=== PATIENT | female | born 1985 | race African-American/Black ===

== ENCOUNTER 2017-10-31 10:40 | Observation (INO) | payer BC, OTHER ==
--- NOTE | 2017-10-31 11:28 | PDOC ---
History of Present Illness - General History Source: Patient Exam Limitations: No Limitations - History of Present Illness Initial Comments: 10/31/17 12:06 The patient is a 32 year old female with significant PMH who presents to the emergency department after being sent by Dr. Davis Gomez for evaluation of low H&H. The patient reports having bloodwork done on and being prescribed Iron as the patients reports her last period was heavier than usual. She reports receiving being told her H&H was low yesterday by Dr. Gomez and to present to the ED for evaluation of a possible transfusion. The patient also notes that all of her fingers feel numb daily before she goes to sleep, which has been occurring for the past year. The patient denies chest pain, shortness of breath, headache and dizziness. Denies fever, chills, nausea, vomit, diarrhea and constipation. Denies dysuria, frequency, urgency and hematuria. LMP: 10/08/2017 Allergies: NKA Past surgical history: None reported. Social history: Current everyday smoker. No reported alcohol or drug use. PCP: Dr. Davis Gomez REGIONAL DIRECTOR OF ADMISSIONS: Dr. Sullivan <Robert Diaz - Last Filed: 10/31/17 13:02> <Floridalma Alvarenga - Last Filed: 11/03/17 08:08> - General Chief Complaint: Revisit, Lab Variance Stated Complaint: TRANSFUSION (PCP SENT) Time Seen by Provider: 10/31/17 11:14 Past History <Robert Diaz - Last Filed: 10/31/17 13:02> - Past Medical History COPD: No DVT: No - Immunization History Immunization Up to Date: Yes - Suicide/Smoking/Psychosocial Hx Smoking History: Never smoked Number of Cigarettes Smoked Daily: 2 Information on smoking cessation initiated: No Hx Alcohol Use: No Drug/Substance Use Hx: No Substance Use Type: None <Floridalma Alvarenga - Last Filed: 11/03/17 08:08> - Past Medical History Allergies/Adverse Reactions: Allergies Allergy/AdvReac Type Severity Reaction Status Date / Time No Known Allergies Allergy Verified 10/31/17 10:45 Home Medications: Ambulatory Orders NK [No Known Home Medication] 10/31/17 Review of Systems - Review of Systems Able to Perform ROS?: Yes Comments:: 10/31/17 12:05 GENERAL/CONSTITUTIONAL: No fever or chills. No weakness. HEAD, EYES, EARS, NOSE AND THROAT: No change in vision. No ear pain or discharge. No sore throat. CARDIOVASCULAR: No chest pain or shortness of breath. RESPIRATORY: No cough, wheezing, or hemoptysis. GASTROINTESTINAL: No nausea, vomiting, diarrhea or constipation. GENITOURINARY: No dysuria, frequency, or change in urination. MUSCULOSKELETAL: No joint or muscle swelling or pain. No neck or back pain. SKIN: No rash NEUROLOGIC: (+) Finger numbness at night daily. No headache, vertigo, loss of consciousness, or change in strength/sensation. ENDOCRINE: No increased thirst. No abnormal weight change. HEMATOLOGIC/LYMPHATIC: No anemia, easy bleeding, or history of blood clots. ALLERGIC/IMMUNOLOGIC: No hives or skin allergy. <Robert Diaz - Last Filed: 10/31/17 13:02> *Physical Exam - Vital Signs Last Vital Signs Temp Pulse Resp BP Pulse Ox 98.4 F 75 17 137/77 100 10/31/17 10:45 10/31/17 10:45 10/31/17 10:45 10/31/17 10:45 10/31/17 10:45 <Robert Diaz - Last Filed: 10/31/17 13:02> - Vital Signs Last Vital Signs Temp Pulse Resp BP Pulse Ox 98.4 F 75 17 137/77 100 10/31/17 10:45 10/31/17 10:45 10/31/17 10:45 10/31/17 10:45 10/31/17 10:45 - Physical Exam Comments: GENERAL: Awake, alert, and fully oriented, in no acute distress HEAD: No signs of trauma EYES: PERRLA, EOMI, sclera anicteric, conjunctiva pale B/L. ENT: Auricles normal inspection, hearing grossly normal, nares patent, oropharynx clear without exudates. Moist mucosa NECK: Normal ROM, supple, no lymphadenopathy, JVD, or masses LUNGS: Breath sounds equal, clear to auscultation bilaterally. No wheezes, and no crackles HEART: Regular rate and rhythm, normal S1 and S2, no murmurs, rubs or gallops ABDOMEN: Soft, nontender, normoactive bowel sounds. No guarding, no rebound. No masses EXTREMITIES: Normal range of motion, no edema. No clubbing or cyanosis. No cords, erythema, or tenderness NEUROLOGICAL: Cranial nerves II through XII grossly intact. Normal speech, normal gait SKIN: Warm, Dry, normal turgor, no rashes or lesions noted. <Floridalma Alvarenga - Last Filed: 11/03/17 08:08> ED Treatment Course - LABORATORY CBC & Chemistry Diagram: 10/31/17 11:12 10/31/17 11:12 - ADDITIONAL ORDERS Additional order review: Laboratory Results 10/31/17 10/31/17 10/31/17 11:25 11:21 11:12 Sodium 140 Potassium 4.1 Chloride 106 Carbon Dioxide 25 Anion Gap 9 BUN 12 Creatinine 0.7 Creat Clearance w eGFR > 60 Random Glucose 98 Calcium 9.2 Total Bilirubin 0.3 AST 12 L ALT 21 Alkaline Phosphatase 52 Total Protein 8.0 Albumin 3.7 Antibody Screen Cancelled Crossmatch See Detail 10/31/17 11:12 RBC 4.01 MCV 60.9 L MCHC 29.7 L RDW 18.1 H MPV 7.1 L Neutrophils % 53.3 Lymphocytes % 33.0 Monocytes % 8.6 Eosinophils % 4.1 Basophils % 1.0 - Consult/PCP Time Called: 13:00 Case discussed with personal care physician: Davis Gomez <Robert Diaz - Last Filed: 10/31/17 13:02> - LABORATORY CBC & Chemistry Diagram: 11/01/17 07:00 11/01/17 08:15 <Floridalma Alvarenga - Last Filed: 11/03/17 08:08> Medical Decision Making - Medical Decision Making Case d/w Dr. Gomez, will place on obs for symptomatic anemia, transfusion pending. <Floridalma Alvarenga - Last Filed: 11/03/17 08:08> *DC/Admit/Observation/Transfer - Attestations Scribe Attestion: 10/31/17 12:06 Documentation prepared by Robert Diaz, acting as medical office assistant instructor for Floridalma Alvarenga MD. <Robert Diaz - Last Filed: 10/31/17 13:02> - Discharge Dispostion Admit: Yes <Floridalma Alvarenga - Last Filed: 02/03/18 08:08> Diagnosis at time of Disposition: Symptomatic anemia - Discharge Dispostion Disposition: HOME Condition at time of disposition: Good
[2017-10-31 11:37] LABS: EOS % 4.1 % (0-4.5); HEMATOCRIT 24.4 % (32.4-45.2); HEMOGLOBIN 7.3 GM/dL (10.7-15.3); MCHC 29.7 g/dl (32.0-36.0); MEAN CELL VOLUME 60.9 fl (80-96); MEAN PLT VOLUME 7.1 fl (7.5-11.1); MONO % 8.6 % (3.8-10.2); NEUT % 53.3 % (42.8-82.8); PLATELET COUNT 543 K/MM3 (134-434); RBC 4.01 M/mm3 (3.60-5.2); RDW 18.1 % (11.6-15.6); WHITE BLOOD COUNT 9.1 K/mm3 (4.0-10.0)
[2017-10-31 11:38] LABS: MCH 18.1 pg (25.7-33.7)
[2017-10-31 11:39] LABS: ADD RBC MORPHOLOGY YES
[2017-10-31 11:59] LABS: ALBUMIN 3.7 g/dl (3.4-5.0); ALK PHOS 52 U/L (45-117); ANION GAP 9 (8-16); BILIRUBIN,TOTAL 0.3 mg/dL (0.2-1.0); BLOOD UREA NITROGEN 12 mg/dL (7-18); CALCIUM 9.2 mg/dL (8.5-10.1); CHLORIDE 106 mmol/L (98-107); CO2 25 mmol/L (21-32); CREATININE 0.7 mg/dL (0.55-1.02); GLUCOSE,RANDOM 98 mg/dL (74-106); POTASSIUM 4.1 mmol/L (3.5-5.1); SGOT/AST 12 U/L (15-37); SGPT/ALT 21 U/L (12-78); SODIUM 140 mmol/L (136-145)
[2017-10-31 12:05] LABS: ANISOCYTOSIS 1+; OVALOCYTE 1+; PLATELET ESTIMATE INCREASED; TARGET CELLS 2+; TEAR DROP CELLS 1+
[2017-10-31 12:22] LABS: LDH 302 U/L (84-246)
[2017-10-31] MEDS ORDERED: SODIUM CHLORIDE 1,000 ML IV STA (12:44)
[2017-10-31 15:25] VITALS: BMI 39.8
[2017-10-31] MEDS: SODIUM CHLORIDE 1,000 ML IV SCH (19:00)
[2017-11-01] MEDS ORDERED: ACETAMINOPHEN 500 MG TABLET (FP) PO PRN (00:04)
[2017-11-01] MEDS: SODIUM CHLORIDE 1,000 ML IV SCH (03:22)
[2017-11-01 06:10] LABS: SERUM IRON SATURATION 3 % (15-55); TOTAL IRON BINDING CAPACITY 537 ug/dL (250-450); UIBC 520 ug/dL (131-425)
[2017-11-01 06:10] LABS: TRANSFERRIN 433 mg/dL (200-370)
[2017-11-01 07:38] LABS: EOS % 3.9 % (0-4.5); HEMATOCRIT 29.7 % (32.4-45.2); HEMOGLOBIN 9.3 GM/dL (10.7-15.3); LYMPH % 31.7 % (8-40); MCH 20.9 pg (25.7-33.7); MCHC 31.2 g/dl (32.0-36.0); MEAN CELL VOLUME 66.9 fl (80-96); MEAN PLT VOLUME 7.3 fl (7.5-11.1); MONO % 7.5 % (3.8-10.2); NEUT % 55.9 % (42.8-82.8); PLATELET COUNT 456 K/MM3 (134-434); RBC 4.44 M/mm3 (3.60-5.2); RDW 25.4 % (11.6-15.6)
[2017-11-01 08:39] LABS: CHLORIDE 108 mmol/L (98-107); POTASSIUM 4.3 mmol/L (3.5-5.1); SODIUM 139 mmol/L (136-145)
[2017-11-01 08:46] LABS: ANION GAP 9 (8-16); BLOOD UREA NITROGEN 13 mg/dL (7-18); CALCIUM 8.3 mg/dL (8.5-10.1); CO2 22 mmol/L (21-32); CREATININE 0.8 mg/dL (0.55-1.02); GLUCOSE,RANDOM 106 mg/dL (74-106)
--- NOTE | 2017-11-01 10:47 | HP ---
Admitting History and Physical - Admission Chief Complaint: no complaints History Source: Patient Limitations to Obtaining History: No Limitations - Past Medical History ...LMP: 10/15/17 - Smoking History Smoking history: Former smoker Have you smoked in the past 12 months: Yes Aproximately how many cigarettes per day: 2 - Alcohol/Substance Use Hx Alcohol Use: No Home Medications - Allergies Allergies/Adverse Reactions: Allergies Allergy/AdvReac Type Severity Reaction Status Date / Time No Known Allergies Allergy Verified 10/31/17 10:45 - Home Medications Home Medications: Ambulatory Orders NK [No Known Home Medication] 10/31/17 Family Disease History - Family Disease History Family History: Unremarkable Review of Systems - Review of Systems Genitourinary: reports: Other (fibroid) Physical Examination Vital Signs: Vital Signs Temperature 98.5 F 11/01/17 03:50 Pulse Rate 76 11/01/17 03:50 Respiratory Rate 18 11/01/17 03:50 Blood Pressure 120/61 11/01/17 03:50 O2 Sat by Pulse Oximetry (%) 100 11/01/17 01:28 Constitutional: Yes: Well Nourished Eyes: Yes: WNL HENT: Yes: WNL Neck: Yes: WNL Cardiovascular: Yes: WNL Respiratory: Yes: WNL Gastrointestinal: Yes: WNL Peripheral Pulses WNL: Yes Integumentary: Yes: WNL Neurological: Yes: WNL, Unresponsive Psychiatric: Yes: WNL Labs: CBC, BMP 11/01/17 07:00 11/01/17 08:15 Assessment/Plan d/c today f/u ultrasound x 1 wk for ovaryfeos3 tid
--- NOTE | 2017-11-01 10:48 | DS ---
Physical Examination Vital Signs: Vital Signs Temperature 98.5 F 11/01/17 03:50 Pulse Rate 76 11/01/17 03:50 Respiratory Rate 18 11/01/17 03:50 Blood Pressure 120/61 11/01/17 03:50 O2 Sat by Pulse Oximetry (%) 100 11/01/17 01:28 Constitutional: Yes: Well Nourished Eyes: Yes: WNL HENT: Yes: WNL Neck: Yes: WNL Cardiovascular: Yes: WNL Respiratory: Yes: WNL Gastrointestinal: Yes: WNL ...Rectal Exam: Yes: WNL Renal/: Yes: WNL Breast(s): Yes: WNL Musculoskeletal: Yes: WNL Extremities: Yes: WNL Edema: Yes Edema: LUE: 3+, RUE: 3+, LLE: 3+, RLE: 3+ Peripheral Pulses: Left Radial: 2+, Right Radial: 2+, Left Doralis Pedis: 2+, Right Dorsalis Pedis: 2+, Left Femoral: 2+ Neurological: Yes: WNL ...Motor Strength: WNL Psychiatric: Yes: WNL Labs: CBC, BMP 11/01/17 07:00 11/01/17 08:15 Discharge Summary Reason For Visit: SECONDARY ANEMIA Current Active Problems Symptomatic anemia (Acute) Condition: Good - Instructions Referrals: Davis Gomez MD [Primary Care Provider] - Disposition: HOME - Home Medications Comprehensive Discharge Medication List: Ambulatory Orders NK [No Known Home Medication] 10/31/17
[2017-11-01 11:22] VITALS: BP 130/80; PULSE 90; TEMP 98.6
== END 2017-11-01 11:46 | disposition home or self-care (01) ==
LOC: JER 10:40 → JERBED 13:13 → J7W 14:20
PROVIDERS: ADMIT Family Medicine; ATTEND Family Medicine
PROC: 30233N1 Transfusion of Nonautologous Red Blood Cells into Peripheral Vein, Percutaneous Approach (ICD-10-PCS; principal; 2017-10-31)
PROC: 3E0337Z Introduction of Electrolytic and Water Balance Substance into Peripheral Vein, Percutaneous Approach (ICD-10-PCS; 2017-10-31)
DX: D64.89 Other specified anemias (principal); Z87.891 Personal history of nicotine dependence
CPT/HCPCS: 36415; 36430; 76856-TC; 80048; 80053; 82728; 83010; 83540; 83550; 83615; 84466; 85025; 85044; 86850; 86900; 86901; 86922; 99284-25; G0378; P9038; P9058

== ENCOUNTER 2018-05-05 09:22 | Observation (INO) | payer BC, OTHER ==
--- NOTE | 2018-05-05 10:56 | PDOC ---
History of Present Illness <Lesa Funes - Last Filed: 05/05/18 11:28> - General History Source: Patient Exam Limitations: No Limitations - History of Present Illness Initial Comments: CHIEF COMPLAINT: 33 y/o afebrile female sent in by Dr. Davis Gomez for a blood transfusion. HISTORY OF PRESENT ILLNESS: The patient states she has heavy periods and has had to have a blood transfusion in the past because of them. They have never found any other reason for her low blood counts. She states she had blood work done on and Dr. Gomez called and told her to come in. Her hemoglobin was 6.5. She states her only symptom is fatigue. She denies f/c, DODGE, dizziness , n/v/d, CP, SOB, back pain, abd pain, hematuria, dysuria, hematochezia, melena. PCP is Dr. Davis Gomez Vital signs on arrival are within normal limits. REVIEW OF SYSTEMS: GENERAL/CONSTITUTIONAL: No fever/chills. No weakness. No weight change. + fatigue HEAD, EYES, EARS, NOSE AND THROAT: No change in vision. No ear pain or discharge. No sore throat. CARDIOVASCULAR: No chest pain or shortness of breath. RESPIRATORY: No cough, wheezing, or hemoptysis. GASTROINTESTINAL: No abd pain, nausea, vomiting, diarrhea, constipation, melena , hematochezia. GENITOURINARY: No dysuria, frequency, or change in urination. MUSCULOSKELETAL: No joint or muscle swelling or pain. No neck or back pain. SKIN: No rash or easy bruising. NEUROLOGIC: No headache, vertigo, loss of consciousness, or loss of sensation. PHYSICAL EXAM: GENERAL: The patient is awake, alert, and fully oriented, in no acute distress. HEAD: Normal with no signs of trauma. ENT: Pupils equal, round and reactive to light, extraocular movements intact, sclera anicteric, conjunctiva clear. Neck supple. LUNGS: Clear to auscultation bilaterally. Normal excursion. No respiratory distress or use of accessory muscles. CV: RRR, S1/S2, no MRG. Cap refill < 2 sec. ABDOMEN: Soft, non-distended, non-tender even to deep palpation, no hepatomegaly or splenomegaly, no masses. EXTREMITIES: Normal range of motion, no edema. NEUROLOGICAL: Normal speech, normal gait. CN II-XII grossly intact. SKIN: Warm, dry, normal turgor, no rashes or lesions noted. <Karma Hwang - Last Filed: 05/05/18 11:59> - General Chief Complaint: Blood Transfusion Stated Complaint: BLOOD TRANSFUSION Time Seen by Provider: 05/05/18 10:35 Past History <Lesa Funes - Last Filed: 05/05/18 11:28> - Past Medical History Anemia: Yes (blood transfusion 2 months ago) COPD: No DVT: No Other medical history: heavy menstruation lasts 27 days - Immunization History Immunization Up to Date: Yes - Suicide/Smoking/Psychosocial Hx Smoking History: Never smoked Have you smoked in the past 12 months: Yes Number of Cigarettes Smoked Daily: 2 Hx Alcohol Use: No Drug/Substance Use Hx: No Substance Use Type: None <Karma Hwang - Last Filed: 05/05/18 11:59> - Past Medical History Allergies/Adverse Reactions: Allergies Allergy/AdvReac Type Severity Reaction Status Date / Time No Known Allergies Allergy Verified 05/05/18 09:43 Home Medications: Ambulatory Orders NK [No Known Home Medication] 10/31/17 *Physical Exam - Vital Signs Last Vital Signs Temp Pulse Resp BP Pulse Ox 98.7 F 87 18 126/79 99 05/05/18 09:40 05/05/18 09:40 05/05/18 09:40 05/05/18 09:40 05/05/18 09:40 <Lesa Funes - Last Filed: 05/05/18 11:28> - Vital Signs Last Vital Signs Temp Pulse Resp BP Pulse Ox 98.7 F 87 18 126/79 99 05/05/18 09:40 05/05/18 09:40 05/05/18 09:40 05/05/18 09:40 05/05/18 09:40 <Karma Hwang - Last Filed: 05/05/18 11:59> ED Treatment Course - LABORATORY CBC & Chemistry Diagram: 05/05/18 10:52 05/05/18 10:52 - ADDITIONAL ORDERS Additional order review: Laboratory Results 05/05/18 05/05/18 10:52 10:52 PT with INR 12.80 INR 1.13 H Crossmatch See Detail 05/05/18 10:52 RBC 3.75 MCV 57.9 L MCHC 29.3 L RDW 20.5 H MPV 6.9 L Neutrophils % 59.1 Lymphocytes % 27.1 Monocytes % 9.4 Eosinophils % 3.0 Basophils % 1.4 <Lesa Funes - Last Filed: 05/05/18 11:28> - LABORATORY CBC & Chemistry Diagram: 05/05/18 10:52 05/05/18 10:52 <Karma Hwang - Last Filed: 05/05/18 11:59> Medical Decision Making - Medical Decision Making 05/05/18 11:28 Dr. Davis Gomez was paged and notified via phone service. <Lesa Funes - Last Filed: 05/05/18 11:28> - Medical Decision Making A/P: 33 y/o afebrile female here for blood transfusion. Plan is as follows: 1. Labs 2. UA Patient with hemoglobin of 6.3. Ordered PRBCs x 2. Spoke with Dr. Davis Gomez who accepts admission. Patient is aware of the plan. <Karma Hwang - Last Filed: 05/05/18 11:59> *DC/Admit/Observation/Transfer <Lesa Funes - Last Filed: 05/05/18 11:28> - Discharge Dispostion Decision to Admit order: Yes <Karma Hwang - Last Filed: 05/05/18 11:59> Diagnosis at time of Disposition: Anemia - Discharge Dispostion Condition at time of disposition: Stable - Referrals Referrals: Davis Gomez MD [Primary Care Provider] - - Patient Instructions - Post Discharge Activity
[2018-05-05 11:00] LABS: BASO % 1.4 % (0-2.0); HEMATOCRIT 21.7 % (32.4-45.2); LYMPH % 27.1 % (8-40); MCHC 29.3 g/dl (32.0-36.0); MEAN CELL VOLUME 57.9 fl (80-96); MEAN PLT VOLUME 6.9 fl (7.5-11.1); MONO % 9.4 % (3.8-10.2); NEUT % 59.1 % (42.8-82.8); PLATELET COUNT 523 K/MM3 (134-434); RBC 3.75 M/mm3 (3.60-5.2); RDW 20.5 % (11.6-15.6); WHITE BLOOD COUNT 8.2 K/mm3 (4.0-10.0)
[2018-05-05 11:14] LABS: MCH 16.9 pg (25.7-33.7)
[2018-05-05 11:17] LABS: HEMOGLOBIN 6.3 GM/dL (10.7-15.3)
[2018-05-05 11:20] LABS: INR 1.13 (0.83-1.09); PROTHROMBIN TIME (PATIENT) 12.8 SEC (9.7-13.0)
[2018-05-05 11:31] LABS: ALBUMIN 3.2 g/dl (3.4-5.0); ANION GAP 9 (8-16); BILIRUBIN,TOTAL 0.3 mg/dL (0.2-1.0); BLOOD UREA NITROGEN 15 mg/dL (7-18); CALCIUM 8.7 mg/dL (8.5-10.1); CHLORIDE 107 mmol/L (98-107); CO2 25 mmol/L (21-32); CREATININE 0.9 mg/dL (0.55-1.02); GLUCOSE,RANDOM 82 mg/dL (74-106); POTASSIUM 3.6 mmol/L (3.5-5.1); SGOT/AST 14 U/L (15-37); SGPT/ALT 20 U/L (12-78); SODIUM 141 mmol/L (136-145); TOT PROT 7.6 g/dl (6.4-8.2)
[2018-05-05 11:33] LABS: ALK PHOS 39 U/L (45-117)
[2018-05-05 13:00] LABS: ANISOCYTOSIS 2+; PLATELET ESTIMATE INCREASED
[2018-05-05 15:49] LABS: HCG,QUALITATIVE URINE Negative
[2018-05-05 15:53] LABS: URINE APPEARANCE SLCLOUDY; URINE BILIRUBIN NEGATIVE (<2.0 mg/dL); URINE COLOR YELLOW; URINE GLUCOSE (UA) NEGATIVE (NEGATIVE); URINE KETONE NEGATIVE (NEGATIVE); URINE LEUK ESTERASE NEGATIVE (NEGATIVE); URINE NITRITE NEGATIVE (NEGATIVE); URINE UROBILINOGEN NEGATIVE mg/dL (0.2-1.0)
[2018-05-05 15:54] LABS: URINE PROTEIN 1+ (NEGATIVE)
[2018-05-05 15:58] LABS: EPI CELLS RARE /HPF (FEW); URINE MUCUS MANY
[2018-05-05] MEDS: ACETAMINOPHEN 325 MG TABLET (FP) PO PRN (21:19)
[2018-05-06 00:06] VITALS: BMI 41.3
[2018-05-06] MEDS ORDERED: PNEUMOC 13-VAL CONJ-DIP CRM/PF 0.5 ML DISP.SYRIN IM ONE (04:11)
[2018-05-06 07:25] LABS: BASO % 0.7 % (0-2.0); HEMOGLOBIN 8.7 GM/dL (10.7-15.3); LYMPH % 27.2 % (8-40); MCH 21.4 pg (25.7-33.7); MCHC 32.3 g/dl (32.0-36.0); MEAN CELL VOLUME 66.4 fl (80-96); MEAN PLT VOLUME 8.3 fl (7.5-11.1); MONO % 7.5 % (3.8-10.2); NEUT % 60.6 % (42.8-82.8); PLATELET COUNT 413 K/MM3 (134-434); RBC 4.06 M/mm3 (3.60-5.2); RDW 31.3 % (11.6-15.6); WHITE BLOOD COUNT 9.6 K/mm3 (4.0-10.0)
[2018-05-06 08:18] LABS: ANION GAP 9 (8-16); BLOOD UREA NITROGEN 14 mg/dL (7-18); CALCIUM 8.3 mg/dL (8.5-10.1); CHLORIDE 110 mmol/L (98-107); CO2 25 mmol/L (21-32); CREATININE 0.8 mg/dL (0.55-1.02); GLUCOSE,RANDOM 91 mg/dL (74-106); POTASSIUM 3.7 mmol/L (3.5-5.1); SODIUM 144 mmol/L (136-145)
[2018-05-06] MEDS ORDERED: PNEUMOCOCCAL 23 VACCINE 0.5 ML VIAL IM ONE (10:00)
--- NOTE | 2018-05-06 10:11 | HP ---
Admitting History and Physical - Admission History of Present Illness: severe anemia s/p 3 units prblcvss hemo onco to see pt chk cbc in am History Source: Patient Limitations to Obtaining History: No Limitations - Past Medical History ...LMP: 05/01/18 - Smoking History Smoking history: Never smoked Have you smoked in the past 12 months: Yes Aproximately how many cigarettes per day: 2 - Alcohol/Substance Use Hx Alcohol Use: No Home Medications - Allergies Allergies/Adverse Reactions: Allergies Allergy/AdvReac Type Severity Reaction Status Date / Time No Known Allergies Allergy Verified 05/05/18 09:43 - Home Medications Home Medications: Ambulatory Orders NK [No Known Home Medication] 10/31/17 Family Disease History - Family Disease History Family History: Unremarkable Physical Examination Vital Signs: Vital Signs Temperature 98.4 F 05/06/18 06:00 Pulse Rate 74 05/06/18 06:00 Respiratory Rate 20 05/06/18 06:00 Blood Pressure 122/70 05/06/18 06:00 O2 Sat by Pulse Oximetry (%) 100 05/06/18 01:11 Constitutional: Yes: Well Nourished Eyes: Yes: WNL HENT: Yes: WNL Neck: Yes: WNL, Rigid Respiratory: Yes: WNL Gastrointestinal: Yes: WNL Integumentary: Yes: WNL Neurological: Yes: WNL ...Motor Strength: WNL Psychiatric: Yes: WNL Labs: CBC, BMP 05/06/18 06:30 05/06/18 06:30 Assessment/Plan hem onc to see py chk sono renal for vsuprapubic pain ? attributedto menses ? bl in u/a chk cbc in am boubt autoimmune dz
--- NOTE | 2018-05-06 11:23 | CONSULT ---
Consultation: REQUESTING PROVIDER: CONSULT REQUEST: We have been asked to medically evaluate this patient for ( Hematology- oncology). HISTORY OF PRESENT ILLNESS: 33 y/o F with PMH of anemia was sent in by her PCP because of anemia. Patient states that she was in hospital 2 months ago for the same problem and got blood transfusion. Patient states that she had heavy menses which last from 10-20 days. For heavy menses she is following [employer] Dr Agustin who started her on OCP but its not helping her. She has been scheduled for ultrasound by her [employer]. She denies blood in stool, urine, vomiting, loss of weight and change in appetite. She denies using Aspirin, Ibuprofen, Motrin and Advil. She also reports generalized weakness but denies lightheadedness, chest pain, sob. PMH: none PSH; none Family history: Mother: anemia details not available. Father from DM at age of 49 4 sisters and one brother healthy Social: Smoked for 6 years stopped last year, us to smoke 2-3 cig. Non alcoholic. 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 REVIEW OF SYSTEMS: CONSTITUTIONAL: Absent: fever, chills, diaphoresis, malaise, loss of appetite, weight change HEENT: Absent: rhinorrhea, nasal congestion, throat pain, throat swelling, difficulty swallowing, CARDIOVASCULAR: Absent: chest pain, syncope, palpitations, irregular heart rate, RESPIRATORY: Absent: cough, shortness of breath, dyspnea with exertion, orthopnea, GASTROINTESTINAL: Absent: abdominal pain, abdominal distension, nausea, vomiting, diarrhea, constipation, melena, hematochezia GENITOURINARY: Absent: dysuria, frequency, urgency, hesitancy, MUSCULOSKELETAL: Absent: myalgia, arthralgia, joint swelling, SKIN: Absent: rash, itching, pallor HEMATOLOGIC/IMMUNOLOGIC: Absent: easy bleeding, easy bruising, lymphadenopathy, ENDOCRINE: Absent: unexplained weight gain, unexplained weight loss, heat intolerance, cold intolerance NEUROLOGIC: Absent: headache, focal weakness or paresthesias, Absent: anxiety, depression, PHYSICAL EXAMINATION 05/06/18 10:00 Temperature Pulse Rate 84 Pulse Rate [ Apical] Respiratory 18 Rate Blood Pressure 128/76 Blood Pressure [Left Arm] O2 Sat by Pulse Oximetry (%) GENERAL: Awake, alert, and fully oriented, in no acute distress. HEAD: Normal with no signs of trauma. EYES: Pupils equal, round and reactive to light, extraocular movements intact, sclera anicteric, conjunctiva clear. no icterus EARS, NOSE, THROAT: Ears normal, nares patent, oropharynx clear without exudates. Moist mucous membranes. multiple cavities in teeth NECK: Normal range of motion, JVD, or masses, b/l posterior belly of diagastric palpable. LUNGS: Breath sounds equal, clear to auscultation bilaterally. No wheezes, and no crackles. No accessory muscle use. HEART: Regular rate and rhythm, normal S1 and S2 without murmur, . ABDOMEN: Soft, nontender, not distended, normoactive bowel sounds, no guarding, no rebound, no masses. MUSCULOSKELETAL: Normal range of motion at all joints. No bony deformities or tenderness. No CVA tenderness. UPPER EXTREMITIES: 2+ pulses, warm, well-perfused. No cyanosis. No clubbing. LOWER EXTREMITIES: 2+ pulses, warm, well-perfused. No calf tenderness. No peripheral edema. NEUROLOGICAL: Normal speech. PSYCHIATRIC: Cooperative. Good eye contact.. SKIN: Warm, dry, 05/06/18 05/06/18 06:30 06:30 WBC 9.6 RBC 4.06 Hgb 8.7 L Hct 27.0 L D MCV 66.4 L MCH 21.4 L D MCHC 32.3 RDW 31.3 H Plt Count 413 D MPV 8.3 D Absolute Neuts (auto) 5.8 Neutrophils % 60.6 Lymphocytes % 27.2 Monocytes % 7.5 Eosinophils % 4.0 Basophils % 0.7 Nucleated RBC % 0 Hypochromia Platelet Estimate Polychromasia Basophilic Stippling Anisocytosis Microcytosis Retic Count PT with INR INR Sodium 144 Potassium 3.7 Chloride 110 H Carbon Dioxide 25 Anion Gap 9 BUN 14 Creatinine 0.8 Creat Clearance w eGFR > 60 Random Glucose 91 Calcium 8.3 L Ferritin Total Bilirubin AST ALT Alkaline Phosphatase Total Protein Albumin Urine Color Urine Appearance Urine pH Ur Specific [place] Urine Protein Urine Glucose (UA) Urine Ketones Urine Blood Urine Nitrite Urine Bilirubin Urine Urobilinogen Ur Leukocyte Esterase Urine WBC (Auto) Urine RBC (Auto) Ur Epithelial Cells Urine Mucus Urine HCG, Qual Blood Type Antibody Screen Crossmatch Active Medications Generic Name Dose Route Start Last Admin Trade Name Freq PRN Reason Stop Dose Admin Acetaminophen 650 mg 05/05/18 20:33 05/05/18 21:19 Tylenol - PO 650 mg Q6H PRN Administration FEVER Docusate Sodium 100 mg 05/06/18 14:00 Colace - PO TID BERNARDINO Ferrous Sulfate 325 mg 05/06/18 12:00 Feosol - PO TIDCM BERNARDINO ASSESSMENT/PLAN: 3 y/o F with PMH of anemia from heavy menses was sent in by her PCP because of fall in her Hb. Patient found to have Hb of 6.3 and got 3 units of blood yesterday ad her Hb increased to 8.7. - Microcytic anemia with low Ferritin with MCV 66 is likely because of iron deficiency from heavy menses. Iron studies pending. Continue with ferrous sulphate. - [employer] follow up. - TSH, VIT B12, FOLIC ACID, LDH Ordered. Heptoglobin pending. Dispo: We will continue to follow the patient. Thank you for this consultative opportunity. Visit type - Emergency Visit Emergency Visit: Yes ED Registration Date: 05/05/18 Care time: The patient presented to the Emergency Department on the above date and was hospitalized for further evaluation of their emergent condition. - New Patient This patient is new to me today: Yes Date on this admission: 05/07/18 - Critical Care Critical Care patient: No
[2018-05-06] MEDS: FERROUS SO4 325 MG TABLET (FP) PO SCH ×2 (12:08→17:39)
[2018-05-06] MEDS: DOCUSATE SODIUM 100 MG CAPSULE (FP) PO SCH ×2 (13:56→21:53)
[2018-05-06] MEDS: ACETAMINOPHEN 325 MG TABLET (FP) PO PRN (14:31)
--- NOTE | 2018-05-06 18:35 | PN ---
Teaching Attending Note Name of Resident: Eduin Jolley ATTENDING PHYSICIAN STATEMENT I saw and evaluated the patient. I reviewed the resident's note and discussed the case with the resident. I agree with the resident's findings and plan as documented. SUBJECTIVE: Heavy menstrual flow over last 5-6 months lasting up to 28 days. Associated with clots . No GI complaints in this 33 year old female with no significant other PMH. Trial of OCP - unsuccessful. Non smoker, non drinker with no industrial exposures or intoxicants. Last Vital Signs Temp Pulse Resp BP Pulse Ox 98.1 F 75 18 138/79 98 05/06/18 18:01 05/06/18 18:01 05/06/18 18:01 05/06/18 18:01 05/06/18 09:00 HEENT: SHAYY, EOM Intact Oropharynx: No thrush, No mucositis Neck: Supple Nodes: Without adenopathy Breasts: Without masses Cor: RSR, No murmurs, No gallops Lungs: Clear to P&A Abd: Soft, Normal bowel sounds, No organomegaly Ext:No significant edema Skin: No rashes, Integument intact CBC, BMP 05/06/18 06:30 05/06/18 06:30 Current Medications Generic Name Dose Route Start Last Admin Trade Name Freq PRN Reason Stop Dose Admin Acetaminophen 650 mg 05/05/18 20:33 05/06/18 14:31 Tylenol - PO 650 mg Q6H PRN Administration FEVER Docusate Sodium 100 mg 05/06/18 14:00 05/06/18 13:56 Colace - PO 100 mg TID BERNARDINO Administration Ferrous Sulfate 325 mg 05/06/18 12:00 05/06/18 17:39 Feosol - PO 325 mg TIDCM BERNARDINO Administration OBJECTIVE: ASSESSMENT AND PLAN: Impression: 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 Plan: PROFESSOR OF GEOLOGY follow up IV Venofer.
[2018-05-06] MEDS ORDERED: IRON SUCROSE INJECTION 300 MG in SODIUM CHLORIDE 235 ML IVPB ONE (18:45)
[2018-05-07 06:06] LABS: SERUM IRON SATURATION 7 % (15-55); TOTAL IRON BINDING CAPACITY 487 ug/dL (250-450); UIBC 454 ug/dL (131-425)
[2018-05-07] MEDS: DOCUSATE SODIUM 100 MG CAPSULE (FP) PO SCH (06:08)
[2018-05-07 08:01] LABS: BASO % 1.1 % (0-2.0); EOS % 2.6 % (0-4.5); HEMATOCRIT 28.5 % (32.4-45.2); HEMOGLOBIN 9.1 GM/dL (10.7-15.3); LYMPH % 21.6 % (8-40); MCH 21.3 pg (25.7-33.7); MCHC 31.9 g/dl (32.0-36.0); MEAN CELL VOLUME 66.9 fl (80-96); MEAN PLT VOLUME 8.4 fl (7.5-11.1); MONO % 7.5 % (3.8-10.2); NEUT % 67.2 % (42.8-82.8); PLATELET COUNT 433 K/MM3 (134-434); RBC 4.26 M/mm3 (3.60-5.2)
[2018-05-07] MEDS: FERROUS SO4 325 MG TABLET (FP) PO SCH (08:48)
--- NOTE | 2018-05-07 10:19 | DS ---
Physical Examination Vital Signs: Vital Signs Temperature 98.2 F 05/07/18 06:00 Pulse Rate 73 05/07/18 06:00 Respiratory Rate 18 05/07/18 06:00 Blood Pressure 138/67 05/07/18 06:00 O2 Sat by Pulse Oximetry (%) 96 05/07/18 01:00 Constitutional: Yes: Well Nourished Eyes: Yes: WNL HENT: Yes: WNL Neck: Yes: WNL Cardiovascular: Yes: WNL Respiratory: Yes: WNL Gastrointestinal: Yes: WNL ...Rectal Exam: Yes: WNL, Deferred Renal/: Yes: WNL Breast(s): Yes: WNL Musculoskeletal: Yes: WNL Extremities: Yes: WNL Edema: No Peripheral Pulses WNL: Yes Neurological: Yes: WNL ...Motor Strength: WNL Psychiatric: Yes: WNL Labs: CBC, BMP 05/07/18 06:20 05/06/18 06:30 Discharge Summary Reason For Visit: ANEMIA Current Active Problems Anemia (Acute) Condition: Good - Instructions Referrals: Davis Gomez MD [Primary Care Provider] - Disposition: HOME - Home Medications Comprehensive Discharge Medication List: Ambulatory Orders NK [No Known Home Medication] 10/31/17 appt w me [id number] sunday colace feso4 tid d/c home now
[2018-05-08 15:15] VITALS: BP 129/68; PULSE 79; TEMP 98
[2018-05-08 16:35] LABS: GLIADIN ANTIBODY IGA 4 units (0-19); GLIADIN ANTIBODY IGG 2 units (0-19); TRANSGLUTAMINASE IGG < 2 U/mL (0-5)
== END 2018-05-07 11:13 | disposition home or self-care (01) ==
LOC: JER 09:22 → INTOOBSV 11:50 → JERBED 11:50 → J5S 18:58
PROVIDERS: ADMIT Family Medicine; ATTEND Family Medicine
PROC: 30233N1 Transfusion of Nonautologous Red Blood Cells into Peripheral Vein, Percutaneous Approach (ICD-10-PCS; principal; 2018-05-05)
PROC: 3E0234Z Introduction of Serum, Toxoid and Vaccine into Muscle, Percutaneous Approach (ICD-10-PCS; 2018-05-05)
PROC: 3E033GC Introduction of Other Therapeutic Substance into Peripheral Vein, Percutaneous Approach (ICD-10-PCS; 2018-05-05)
DX: D50.0 Iron deficiency anemia secondary to blood loss (chronic) (principal); Z23 Encounter for immunization
CPT/HCPCS: 36415; 36430; 76856-TC; 80048; 80053; 81003; 81015; 82272; 82607; 82728; 82746; 82784; 83010; 83021; 83516; 83540; 83550; 83615; 84443; 84703; 85025; 85044; 85610; 85660; 86850; 86900; 86901; 86922; 90732; 99284-25; G0009; G0378; J1756; P9038; P9058

== ENCOUNTER 2018-06-14 10:43 | Day surgery (SDC) | payer OTHER ==
[2018-06-06 15:13] VITALS: BMI 38.0
[2018-06-14] MEDS ORDERED: MIDAZOLAM HCL 2 MG/2 ML SINGLE DOSE VIAL ONE (11:51)
[2018-06-14] MEDS ORDERED: PROPOFOL 20 ML ONE (11:51)
[2018-06-14] MEDS ORDERED: LIDOCAINE HCL/PF 2% SDV 5ML VIAL ONE (11:52)
[2018-06-14] MEDS ORDERED: IBUPROFEN 800 MG/8 ML IJ IVPB PRN (12:07)
[2018-06-14] MEDS ORDERED: ACETAMINOPHEN 325 MG TABLET (FP) PO PRN (12:07)
--- NOTE | 2018-06-14 12:07 | HP ---
History & Physical Update - History History: No Change - Physical Physical: No Change - Assessment Assessment: No Change - Plan Plan: No Change (No change, agree with H&P from 06/07, for hysteroscopic resection of intracavitary fibroid)
[2018-06-14] MEDS ORDERED: DEXAMETHASONE SOD PHOSPHATE 4 MG/1 ML VIAL ONE (12:12)
[2018-06-14] MEDS ORDERED: LACTATED RINGERS SOLUTION 1,000 ML IV SCH ×2 (12:15→13:45)
[2018-06-14] MEDS ORDERED: KETOROLAC TROMETHAMINE 30 MG/1 ML VIAL ONE (12:35)
[2018-06-14] MEDS ORDERED: PROMETHAZINE HCL 25 MG/1 ML VIAL IVPUSH PRN (13:38)
[2018-06-14] MEDS ORDERED: ONDANSETRON 4 MG/2 ML VIAL IVPUSH PRN (13:38)
--- NOTE | 2018-06-14 13:40 | OP ---
Operative Note - Note: Operative Date: 06/14/18 ([id number]) Pre-Operative Diagnosis: AUB, intracavitary uterine fibroid Operation: hysteroscopic myomectomy, suction D&C Findings: large intracavitary uterine fibroid Post-Operative Diagnosis: Same as Pre-op Surgeon: Alissa Nicolas Anesthesiologist/TECHNICAL ASSISTANCE CONSULTANT: Cuate Ellis Anesthesia: General Specimens Removed: portions of uterine fibroid Estimated Blood Loss (mls): 50 Drains, Volume Out (mls): 500 (fluid loss (NSS)) Operative Report Dictated: Yes
[2018-06-14 18:34] VITALS: BP 133/69; PULSE 85; TEMP 98.5
--- NOTE | 2018-06-15 07:57 | OP ---
DATE OF OPERATION: 06/14/2018 PREOPERATIVE DIAGNOSES: Abnormal uterine bleeding and intracavitary uterine fibroid. POSTOPERATIVE DIAGNOSES: Abnormal uterine bleeding and intracavitary uterine fibroid. PROCEDURE: Hysteroscopic myomectomy, suction dilatation and curettage. SURGEON: Alissa Nicolas DO ANESTHESIA: General by Cuate Ellis MD. ESTIMATED BLOOD LOSS: 50 mL. COMPLICATIONS: Inability to resect entire fibroid secondary to size. Will need staged procedure. FLUID DEFICIT: 500 mL. COUNTS: Sponge, needle, instrument count correct. SPECIMEN: Portions of uterine fibroid. DISPOSITION: Stable to PACU. BRIEF HISTORY AND PROCEDURE: Patient is a 33-year-old female who had been seen in the office with complaints of abnormal uterine bleeding and found to have an intracavitary uterine fibroid. The patient was counseled on her options and elected to undergo an attempt at a hysteroscopic resection of the fibroid. The patient was consented in the office and the patient was admitted to [facility] on June 14, 2018, where consents were reconfirmed. The patient was then taken back to the operating room and given general anesthesia and placed in the dorsal lithotomy position. A tenaculum was placed on the cervix and an operative hysteroscope was placed into the uterus. A very large intracavitary uterine fibroid was appreciated which was resected in several passes under direct visualization. Approximately 30% to 40% of the uterine fibroid was resected. However, after over 60 minutes of resection the plan was made to terminate the procedure and plan for a stage 2 procedure secondary to the large size of the uterine fibroid. The patient had been counseled on this possible complication prior to the surgery. Portions of the uterine fibroid which were able to be resected were sent to Pathology for permanent evaluation. After the resection was completed all instruments were removed from the uterus and vagina. One last look with the resectoscope revealed no evidence of uterine perforation. Sponge and instrument count was reported to be correct. The patient tolerated the procedure well and went to recovery in stable condition after the procedure at the time of this dictation. ALISSA NICOLAS DO /[id number]
--- NOTE | 2018-06-18 16:32 | PATH ---
Surgical Pathology Report Patient Name: JUAN FLORENTINO [facility]. Rec. #: [id number] /Age/Gender: 1985 (Age: 33) / F Account: [id number] Location: [facility] SURGICAL Taken: 06/14/2018 Received: 06/17/2018 Reported: 06/18/2018 Physicians: Alissa Nicolas M.D. Specimen(s) Received UTERINE CONTENTS Clinical History Submucosal fibroids Final Diagnosis CONTENTS OF UTERUS, HYSTEROSCOPIC MYOMECTOMY: FRAGMENTS OF ENDOMETRIAL POLYP AND SUBMUCOSAL LEIOMYOMA. Electronically Signed Katerin Lay M.D. Gross Description Received in formalin labeled "contents of uterus," is a 23 g, 11.0 x 8.0 x 0.6 cm aggregate of vallejo portions of firm to rubbery tissue, consistent with morcellated fibroids. A herbicide service sales representative portion is submitted in 6 cassettes. /06/17/2018 saudi06/17/2018
== END 2018-06-14 18:55 | disposition home or self-care (01) ==
LOC: JASU-SURG 10:43
PROVIDERS: ATTEND Obstetrics & Gynecology
PROC: 0UJD8ZZ Inspection of Uterus and Cervix, Via Natural or Artificial Opening Endoscopic (ICD-10-PCS; 2018-06-14)
PROC: 0UB98ZZ Excision of Uterus, Via Natural or Artificial Opening Endoscopic (ICD-10-PCS; principal; 2018-06-14 12:00)
PROC: 0UDB7ZX Extraction of Endometrium, Via Natural or Artificial Opening, Diagnostic (ICD-10-PCS; 2018-06-14 12:00)
DX: N93.9 Abnormal uterine and vaginal bleeding, unspecified (principal); D25.9 Leiomyoma of uterus, unspecified
CPT/HCPCS: 36415; 84703; 86850; 86900; 86901; 88305-TC; 94760

== ENCOUNTER 2018-07-05 11:16 | Day surgery (SDC) | payer OTHER ==
[2018-07-04 10:26] VITALS: BMI 38.0
[2018-07-05] MEDS ORDERED: IBUPROFEN 800 MG/8 ML IJ IVPB PRN (12:13)
[2018-07-05] MEDS ORDERED: ACETAMINOPHEN 325 MG TABLET (FP) PO PRN (12:13)
--- NOTE | 2018-07-05 12:13 | HP ---
History & Physical Update - History History: No Change - Physical Physical: No Change - Assessment Assessment: No Change - Plan Plan: No Change (No change from H&P from 07/04 - for hysterocopic myomectomy and D&C - 2nd stage of procedure)
[2018-07-05] MEDS ORDERED: LACTATED RINGERS SOLUTION 1,000 ML IV SCH ×2 (12:15→12:45)
[2018-07-05] MEDS ORDERED: MIDAZOLAM HCL 2 MG/2 ML SINGLE DOSE VIAL ONE (12:31)
[2018-07-05] MEDS ORDERED: PROPOFOL 20 ML ONE (12:31)
[2018-07-05] MEDS ORDERED: ROCURONIUM BROMIDE 50 MG/5 ML VIAL ONE (12:31)
[2018-07-05] MEDS ORDERED: fentaNYL CITRATE 250 MCG/5 ML VIAL ONE (12:31)
[2018-07-05] MEDS ORDERED: DEXAMETHASONE SOD PHOSPHATE 4 MG/1 ML VIAL ONE (12:32)
[2018-07-05] MEDS ORDERED: LIDOCAINE HCL/PF 2% SDV 5ML VIAL ONE (12:32)
[2018-07-05] MEDS ORDERED: oxyCODONE HCL 5 MG TABLET PO PRN ×2 (12:39)
[2018-07-05] MEDS ORDERED: ONDANSETRON 4 MG/2 ML VIAL IVPUSH PRN (12:39)
--- NOTE | 2018-07-05 13:51 | OP ---
Operative Note - Note: Operative Date: 07/05/18 Pre-Operative Diagnosis: submucosal fibroid s/p 1st stage of hysteroscopic myomectomy on 06/07/18 Operation: hysteroscopic myomectomy, suction D&C Findings: small fundal polyp fragments of detached uterine fibroid Post-Operative Diagnosis: Same as Pre-op Surgeon: Alissa Nicolas Anesthesiologist/CERTIFIED PEER SPECIALIST: Simone Carroll Anesthesia: General Specimens Removed: endometrial curretings, endometrial polyp, portions of fibroid Estimated Blood Loss (mls): 10 Drains, Volume Out (mls): 200 (200 cc fluid defecit) Operative Report Dictated: Yes
[2018-07-05] MEDS ORDERED: IBUPROFEN 800 MG/8 ML IJ IVPB ONE (14:05)
[2018-07-05 17:51] VITALS: BP 118/74; PULSE 72; TEMP 97.8
--- NOTE | 2018-07-06 06:23 | OP ---
DATE OF OPERATION: 07/05/2018 PREOPERATIVE DIAGNOSIS: Submucosal intracavitary uterine fibroid. POSTOPERATIVE DIAGNOSIS: Submucosal intracavitary uterine fibroid with endometrial polyp. SURGERY: Hysteroscopic polypectomy and myomectomy, dilatation and curettage. SURGEON: Alissa Nicolas MD ANESTHESIA: General by Dr. Carroll, administered also by Alon Caruso. ESTIMATED BLOOD LOSS: 5 mL. COMPLICATIONS: None. SPECIMENS: Portions of uterine fibroid, endometrial curettings and endometrial polyp. COUNTS: Sponge and instrument counts correct. DISPOSITION: Stable to PACU. BRIEF HISTORY AND PROCEDURE: Patient is a 33-year-old female who had been seen in the office in May with complaints of heavy abnormal uterine bleeding. She was noted to have a large submucosal uterine fibroid. The patient had undergone a partial resection of her fibroid hysteroscopically on June 07, 2018. Approximately 60% of the fibroid was removed at that time. Patient was seen approximately 2 weeks ago from todays date, and an ultrasound in the office revealed approximately 50% of the fibroid was left over in the uterine cavity. The patient elected to undergo a 2nd stage hysteroscopic myomectomy. The patient signed consents for the procedure in the office and was admitted to [facility] on July 05, 2018, where the consents were reconfirmed. She was then taken back to the operating room, given general anesthesia, and placed in the dorsal lithotomy position. The cervix was dilated to accommodate an operative hysteroscope, which was advanced to the fundus. Bilateral tubal ostia were noted. A small fundal uterine polyp was noted, and small fragments of uterine fibroid were noted in the uterine cavity. No large intracavitary fibroid was appreciated at this time. The uterine polyp was resected with the resectoscope, and a dilatation and curettage was performed. One final pass with the hysteroscope revealed no evidence of uterine perforation. All instruments were removed from the vagina. Specimens were sent to Pathology for permanent evaluation. Patient was awoken from anesthesia and recovering in stable condition in the PACU at the time of this dictation. ALISSA NICOLAS DO /[id number]
== END 2018-07-05 17:00 | disposition home or self-care (01) ==
LOC: JASU-SURG 11:16
PROVIDERS: ATTEND Obstetrics & Gynecology
PROC: 0UDB7ZX Extraction of Endometrium, Via Natural or Artificial Opening, Diagnostic (ICD-10-PCS; 2018-07-05)
PROC: 0UJD8ZZ Inspection of Uterus and Cervix, Via Natural or Artificial Opening Endoscopic (ICD-10-PCS; 2018-07-05)
PROC: 0UB98ZZ Excision of Uterus, Via Natural or Artificial Opening Endoscopic (ICD-10-PCS; principal; 2018-07-05 13:00)
PROC: 0UB97ZX Excision of Uterus, Via Natural or Artificial Opening, Diagnostic (ICD-10-PCS; 2018-07-05 13:00)
DX: D25.0 Submucous leiomyoma of uterus (principal); N84.0 Polyp of corpus uteri
CPT/HCPCS: 36415; 84703; 86850; 86900; 86901; 88305-TC; 94760

== ENCOUNTER 2018-11-15 14:00 | Inpatient (IN) | payer OTHER ==
[2018-12-05 08:41] VITALS: BMI 42.5
[2018-12-06] MEDS ORDERED: BUPIVACAINE HCL/PF 0.5% (5MG/ML) 10 ML VIAL ONE (07:24)
[2018-12-06] MEDS ORDERED: fentaNYL CITRATE 250 MCG/5 ML VIAL ONE ×2 (07:58→09:08)
[2018-12-06] MEDS ORDERED: PROPOFOL 20 ML ONE ×2 (07:59→08:40)
[2018-12-06] MEDS ORDERED: ROCURONIUM BROMIDE 50 MG/5 ML VIAL ONE ×2 (07:59→09:08)
[2018-12-06] MEDS ORDERED: MIDAZOLAM HCL 2 MG/2 ML SINGLE DOSE VIAL ONE (07:59)
[2018-12-06] MEDS ORDERED: SUCCINYLCHOLINE CHLORIDE 200 MG/10 ML VIAL ONE (08:36)
[2018-12-06] MEDS ORDERED: ceFAZolin SODIUM 1 GM VIAL IVPB ONE (08:48)
[2018-12-06 09:02] LABS: URINE APPEARANCE CLEAR; URINE BILIRUBIN NEGATIVE (<2.0 mg/dL); URINE COLOR LTYELLOW; URINE GLUCOSE (UA) NEGATIVE (NEGATIVE); URINE KETONE NEGATIVE (NEGATIVE); URINE LEUK ESTERASE NEGATIVE (NEGATIVE); URINE NITRITE NEGATIVE (NEGATIVE); URINE PROTEIN NEGATIVE (NEGATIVE); URINE UROBILINOGEN NEGATIVE mg/dL (0.2-1.0)
[2018-12-06] MEDS ORDERED: BUPIVACAINE HCL/PF (5 MG/ML) 30 ML VIAL IJ ONE ×2 (09:27)
[2018-12-06] MEDS ORDERED: ONDANSETRON 4 MG/2 ML VIAL IVPUSH PRN ×2 (09:54→10:21)
[2018-12-06] MEDS ORDERED: LACTATED RINGERS SOLUTION 1,000 ML IV SCH (10:00)
[2018-12-06] MEDS ORDERED: ACETAMINOPHEN INJECTION 100 ML IVPB ONE (10:22)
[2018-12-06] MEDS ORDERED: FAMOTIDINE 20 MG/50 ML IVPB 20 MG/50 ML MG IVPB ONE (10:22)
[2018-12-06] MEDS ORDERED: METOCLOPRAMIDE HCL INJECTION 10 MG/2 ML VIAL ONE (10:22)
[2018-12-06] MEDS ORDERED: morphine CARPU-JECT 2 MG/1 ML DISP.SYRIN IVPUSH PRN (10:23)
[2018-12-06] MEDS ORDERED: PHENYLEPHRINE HCL 10 MG/1 ML SINGLE DOSE VIAL ONE (10:26)
[2018-12-06] MEDS ORDERED: NEOSTIGMINE METHYLSULFATE 0.5 MG/ML - 10 ML MDV ONE (10:26)
--- NOTE | 2018-12-06 10:28 | OP ---
Operative Note - Note: Operative Date: 12/06/18 Pre-Operative Diagnosis: Morbid Obesity. Hyperlipidemia Operation: Laparoscopic Vertical Sleeve Gastrectomy. Wedge biopsy of left lobe of liver. Diagnostic laparoscopy Findings: Greater curve sleeve gastrectomy performed with #[address] Wedge biopsy performed on enlarged left lobe of liver Post-Operative Diagnosis: Same as Pre-op (Hepatomegaly) Surgeon: Brian Carreon Greeting Card Maker: Agustin Gonzalez Anesthesia: General Specimens Removed: Greater curve of stomach. wedge biopsy of left lobe of liver Estimated Blood Loss (mls): 30 Operative Report Dictated: Yes
[2018-12-06] MEDS: METOCLOPRAMIDE HCL INJECTION 10 MG/2 ML VIAL IVPUSH SCH ×3 (10:48→23:02)
[2018-12-06] MEDS ORDERED: FAMOTIDINE 20 MG PREMIXED IVPB IVPB ONE (11:00)
[2018-12-06] MEDS ORDERED: ACETAMINOPHEN 1000 MG/100 ML VIAL (NON FORMULARY) IVPB ONE (11:15)
--- NOTE | 2018-12-06 11:36 | OP ---
DATE OF OPERATION: 12/06/2018 PREOPERATIVE DIAGNOSES: 1. Morbid obesity. 2. Hyperlipidemia. POSTOPERATIVE DIAGNOSES: 1. Morbid obesity. 2. Hyperlipidemia. 3. Hepatomegaly. PROCEDURE PERFORMED: 1. Laparoscopic vertical sleeve gastrectomy. 2. Wedge biopsy of the left lobe of the liver. 3. Diagnostic laparoscopy. SURGEON: Brian Carreon MD SIGNAL SYSTEM TESTING MAINTAINER: Agustin Gonzalez MD ANESTHESIA: General. OPERATIVE PROCEDURE: The patient was brought into the operating room, placed on the OR table in a supine position. All precautions were taken initially including padding for the back and the feet, and Venodyne boots were placed on both lower extremities. At that point, the abdomen was prepped and draped in usual manner. A Veress needle was placed in the left upper quadrant, and a pneumoperitoneum was established. A number 5 bladeless trocar was placed in the left upper quadrant under direct vision, and through that trocar, laparoscopic camera was placed. Under direct vision, a number 15 bladeless trocar was placed in the midline at the superior portion of the umbilicus followed by a number 5 bladeless trocar in the right upper quadrant and a number 5 bladeless trocar below the left costal margin. A Travis liver retractor was then placed in the epigastrium to retract the left lobe of the liver. The left lobe of the liver was noted to be extremely enlarged and even with the liver retractor, still hung over the stomach. It was decided, therefore, that a wedge biopsy would be performed. With the LigaSure now utilized, the LigaSure was able to take a portion on the inferior surface of the liver in a triangle shape as it cut through the capsule and parenchyma and then the specimen was sent off the field to Pathology. The minor parenchymal bleeding was now controlled with the hook from the LigaSure without any difficulty. At this juncture, Anesthesia placed the patient in the 20-degree reverse Trendelenburg position. The pylorus was noted on distal stomach, and 6 cm was measured proximally from there. Here in the greater curve, the operating surgeon lifted the stomach toward the anterior abdominal wall as the assistant secretary surgeon retracted the gastrocolic ligament inferiorly. The LigaSure was used to dissect the gastrocolic ligament off the greater curve of the stomach. This continued in a superior and vertical direction dissecting the short gastric vessels until the final short gastric vessel between the superior pole of spleen and the proximal fundus was divided. At this juncture, Anesthesia had a number 40 bougie placed just past the EG junction on the lesser curve. Anesthesia now passed the bougie further and this continued until the bougie was in the antrum of the stomach. With the bougie held along the lesser curvature, a series of iván were performed with the first 2 iván being black load iván 6 cm in length along the bougie. As the assistant secretary surgeon retracted the stomach laterally, a series of purple iván continued also 6 cm in length and also along the bougie. This continued until the final staple was fired in the left upper quadrant and the greater curve now completely detached from the lesser curve. It should be noted that prior to firing each staple, both the anterior and posterior green were checked that they were intact and the area of the esophagogastric junction approximately 1 to 1.5 cm serosa remained on the anterior and posterior surfaces. At this juncture, Dr. Gonzalez stepped out of the operation and performed an upper endoscopy. The details of which will be described in his operative note, but essentially it showed that there was no stricture of the sleeve all the way down to the antrum and there were no signs of any leakage from the staple line. At this junction, Surgicel was placed along the staple line and in the left upper quadrant by the dissection along the superior pole of the spleen. Under direct vision, all trocars were removed, and pneumoperitoneum was released. It should be noted that the stomach specimen was sent off the field through the 15 trocar to Pathology as a specimen. After pneumoperitoneum was released, the midline supraumbilical incision had the fascia closed with 0 Vicryl in interrupted fashion and then all trocar sites injected with 0.25% Marcaine. The number 15 trocar site was closed with 3-0 Vicryl on the subcutaneous tissue, and all trocar sites were closed with 4-0 Biosyn in a subcuticular fashion. Dressings were applied. The patient awoke from anesthesia and transferred out of the operating room to the recovery room in stable condition. EXPECTED BLOOD LOSS: 30 mL. DISPOSITION: The patient was transferred to the recovery room in stable condition. Viji [id number]
[2018-12-06 11:44] LABS: HEMATOCRIT 39.4 % (32.4-45.2); MEAN CELL VOLUME 84.8 fl (80-96); MEAN PLT VOLUME 8.3 fl (7.5-11.1); PLATELET COUNT 354 K/MM3 (134-434); RBC 4.64 M/mm3 (3.60-5.2); RDW 15.9 % (11.6-15.6); WHITE BLOOD COUNT 12.2 K/mm3 (4.0-10.0)
[2018-12-06] MEDS ORDERED: hydrALAZINE HCL 20 MG/ML VIAL ONE (12:11)
[2018-12-06 12:38] LABS: ALBUMIN 3.5 g/dl (3.4-5.0); ALK PHOS 62 U/L (45-117); ANION GAP 4 MMOL/L (8-16); BILIRUBIN,TOTAL 0.2 mg/dL (0.2-1); BLOOD UREA NITROGEN 16 mg/dL (7-18); CALCIUM 8.6 mg/dL (8.5-10.1); CHLORIDE 106 mmol/L (98-107); CO2 26 mmol/L (21-32); CREATININE 0.9 mg/dL (0.55-1.3); GLUCOSE,RANDOM 126 mg/dL (74-106); POTASSIUM 4.5 mmol/L (3.5-5.1); SGOT/AST 21 U/L (15-37); SGPT/ALT 28 U/L (13-61); SODIUM 136 mmol/L (136-145); TOT PROT 8.8 g/dl (6.4-8.2)
[2018-12-06] MEDS ORDERED: ACETAMINOPHEN 1000 MG/100 ML VIAL (NON FORMULARY) IVPB SCH (12:45)
--- NOTE | 2018-12-06 16:09 | OP ---
DATE OF OPERATION: 12/06/2018 SURGEON: Abdias Gonzalez MD PREOPERATIVE DIAGNOSIS: Rule out leak and/or obstruction status post vertical sleeve gastrectomy by Dr. Brian Carreon. POSTOPERATIVE DIAGNOSIS: No leak. No obstruction. PROCEDURE: Upper endoscopy/esophagogastroduodenoscopy. SPECIMEN: None. ESTIMATED BLOOD LOSS: 0 mL. REASON FOR PROCEDURE: This is a 33-year-old female who is undergoing laparoscopic vertical sleeve gastrectomy by Dr. Brian Carreon. After the stomach was transected, in order to further evaluate for leak and/or obstruction, upper endoscopy was requested. DESCRIPTION OF PROCEDURE: The endoscope was placed in the patient's mouth, inserted into the oral cavity. Esophagus, GE junction, gastric pouch up to the level and beyond the pylorus. No leak and no obstruction was noted. The stomach was suctioned and the scope removed. The remainder of the procedure was continued. ABDIAS GONZALEZ M.D. ROXANNE/[id number]
[2018-12-06] MEDS ORDERED: MORPHINE SULFATE 2 MG/ML VIAL IVPUSH PRN (16:46)
[2018-12-06] MEDS: ENOXAPARIN NA (PORCINE) 40 MG/0.4 ML DISP.SYRIN SQ SCH (23:02)
[2018-12-06] MEDS: FAMOTIDINE 20 MG/50 ML IVPB 20 MG/50 ML MG IVPB SCH (23:03)
[2018-12-06] MEDS: ACETAMINOPHEN 1000 MG/100 ML VIAL (NON FORMULARY) IVPB SCH (23:38)
[2018-12-07] MEDS: METOCLOPRAMIDE HCL INJECTION 10 MG/2 ML VIAL IVPUSH SCH ×2 (04:53→09:31)
[2018-12-07] MEDS: ACETAMINOPHEN 1000 MG/100 ML VIAL (NON FORMULARY) IVPB SCH ×2 (04:54→10:53)
[2018-12-07 07:12] LABS: HEMATOCRIT 35.3 % (32.4-45.2); HEMOGLOBIN 11.6 GM/dL (10.7-15.3); MCH 27.5 pg (25.7-33.7); MCHC 32.9 g/dl (32.0-36.0); MEAN CELL VOLUME 83.8 fl (80-96); MEAN PLT VOLUME 7.8 fl (7.5-11.1); PLATELET COUNT 350 K/MM3 (134-434); RBC 4.22 M/mm3 (3.60-5.2); RDW 16.1 % (11.6-15.6); WHITE BLOOD COUNT 13.6 K/mm3 (4.0-10.0)
[2018-12-07 07:34] LABS: ALBUMIN 3.3 g/dl (3.4-5.0); ALK PHOS 48 U/L (45-117); ANION GAP 6 MMOL/L (8-16); BILIRUBIN,TOTAL 0.7 mg/dL (0.2-1); BLOOD UREA NITROGEN 10 mg/dL (7-18); CALCIUM 8.5 mg/dL (8.5-10.1); CHLORIDE 106 mmol/L (98-107); CO2 24 mmol/L (21-32); CREATININE 0.7 mg/dL (0.55-1.3); GLUCOSE,RANDOM 99 mg/dL (74-106); POTASSIUM 3.6 mmol/L (3.5-5.1); SGOT/AST 13 U/L (15-37); SGPT/ALT 10 U/L (13-61); SODIUM 137 mmol/L (136-145); TOT PROT 7.2 g/dl (6.4-8.2)
[2018-12-07] MEDS: FAMOTIDINE 20 MG/50 ML IVPB 20 MG/50 ML MG IVPB SCH (09:26)
[2018-12-07] MEDS: ENOXAPARIN NA (PORCINE) 40 MG/0.4 ML DISP.SYRIN SQ SCH (09:26)
[2018-12-07] MEDS: SODIUM CHLORIDE 1,000 ML IV SCH ×2 (09:31→10:54)
--- NOTE | 2018-12-07 13:34 | PN ---
Progress Note (short form) - Note Progress Note: POD#1 Afebrile; VSS P-100-108 when active; 88 when lying in bed No N/V P/E- Abd- all trocar sites clean, dry UGI- no leak, no obstruction WBC-13.6 H/H-11.6/35.3 P- PO clear liquids- 3 oz po tid D/C home today F/U in office in 5 days Full post-op instructions explained to pt
[2018-12-07] MEDS ORDERED: oxyCODONE HCL 5 MG TABLET PO PRN (13:36)
[2018-12-07] MEDS ORDERED: ACETAMINOPHEN 325 MG TABLET (FP) PO PRN (13:36)
[2018-12-07] MEDS ORDERED: SODIUM CHLORIDE 1,000 ML IV SCH (13:45)
[2018-12-07 14:30] VITALS: BP 142/81; PULSE 91; TEMP 98.6
--- NOTE | 2018-12-09 15:13 | PATH ---
Surgical Pathology Report Patient Name: JUAN FLORENTINO Med. Rec. #: [id number] /Age/Gender: 1985 (Age: 33) / F Account: [id number] Location: 4 W TELEMETRY U Taken: 12/06/2018 Received: 12/06/2018 Reported: 12/09/2018 Physicians: Brian Carreon M.D. Specimen(s) Received A: GREATER CURVATURE STOMACH B: LIVER BIOPSY Clinical History Morbid obesity Final Diagnosis A. STOMACH, GREATER CURVATURE, LAPAROSCOPIC VERTICAL SLEEVE GASTRECTOMY: PORTION OF STOMACH WITH MODERATE CHRONIC GASTRITIS. IMMUNOHISTOCHEMICAL STAIN FOR H. PYLORI IS POSITIVE (MANY). B. LIVER, BIOPSY: LIVER PARENCHYMA WITH MILD STEATOSIS (~ 20%). FOCAL PORTAL TRACTS SHOW MILD MIXED INFLAMMATORY INFILTRATE COMPRISED OF LYMPHOCYTES AND NEUTROPHILS. SUBCAPSULAR LIVER TISSUE WITH MILD PERIVENULAR, PERICELLULAR AND PERIPORTAL FIBROSIS ON PERFORMED SPECIAL STAIN (TRICHROME). NO INCREASE IN IRON ON PERFORMED SPECIAL STAIN (IRON). Comment: Liver fibrosis cannot be definitively evaluated due to suboptimal material (subcapsular biopsy). The inflammation is non-specific and can be due to surgical procedure or chronic hepatitis. Suggest clinical, serologic, and radiologic correlation. Electronically Signed Katerin Lay M.D. Gross Description A. Received in formalin, labeled "greater curvature of stomach," is a 128 gram, 23.0 x 3.8 x 3.0 cm. portion of stomach with a stapled margin of resection. The serosa is vallejo-raphael with minimal attached fat. The mucosa is vallejo-pink with normal folds. No mucosal masses are identified. Instructor Apparel Manufacture sections are submitted in one cassette. B. Received in formalin labeled "liver biopsy," is a 2.4 x 1.3 x 0.6 cm vallejo portion of soft tissue, consistent with a liver biopsy. The specimen is bisected and entirely submitted in one cassette. 12/06/2018 saudi12/06/2018
== END 2018-12-07 15:40 | disposition home or self-care (01) | DRG 621 ==
LOC: JSAMEDAYSX 12-06 06:25 → J4W 12-06 15:11
PROVIDERS: ADMIT Surgery; ATTEND Surgery
PROC: 0FB24ZX Excision of Left Lobe Liver, Percutaneous Endoscopic Approach, Diagnostic (ICD-10-PCS; 2018-12-06)
PROC: 0DJ08ZZ Inspection of Upper Intestinal Tract, Via Natural or Artificial Opening Endoscopic (ICD-10-PCS; 2018-12-06)
PROC: 0DB64Z3 Excision of Stomach, Percutaneous Endoscopic Approach, Vertical (ICD-10-PCS; principal; 2018-12-06 08:00)
DX: E66.01 Morbid (severe) obesity due to excess calories (principal); Z68.41 Body mass index [BMI] 40.0-44.9, adult; R16.0 Hepatomegaly, not elsewhere classified; E78.5 Hyperlipidemia, unspecified
CPT/HCPCS: 36415; 74241-TC-FY; 80053; 81003; 84703; 85027; 86850; 86900; 86901; 88305-TC; 94760; J0131; J7030

== ENCOUNTER 2019-07-17 22:56 | Emergency (ER) | payer OTHER ==
[2019-07-17 23:00] VITALS: BP 120/75; PULSE 108; TEMP 97.7; BMI 35.9
== END 2019-07-17 23:27 | disposition left against medical advice (07) ==
LOC: JER 22:56
DX: Z53.21 Procedure and treatment not carried out due to patient leaving prior to being seen by health care provider (principal)
CPT/HCPCS: 99281-25